=== PATIENT | male | born 1955 | race Two or more races ===

== ENCOUNTER 2021-11-28 19:51 | Emergency (ER) | payer SELFPAY ==
[~2021-11-28] VITALS: Ht 172.7 cm; Wt 99.8 kg
[2021-11-28 21:34] LABS: Basophils # (auto) 0 10 ^3/uL (0-0.2); Basophils % (auto) 0.4 % (0.0-2.0); Eosinophils # (auto) 0.1 10 ^3/uL (0-0.8); Hematocrit 47.5 % (41.0-53.0); Lymphocytes % (auto) 41.7 % (10.0-50.0); Mean Corpuscular Hgb Conc. 33.7 g/dL (32.0-36.0); Monocytes # (auto) 0.7 10 ^3/uL (0-1.3); Monocytes % (auto) 9.4 % (0.0-12.0); Neutrophils # (auto) 3.4 10 ^3/uL (1.6-8.6); Neutrophils % (auto) 46.5 % (37.0-80.0); Nucleated Red Blood Cells % 0.1 %; Red Blood Cells 5.52 10^6/uL (4.5-5.90); Red Cell Distribution Width 13.5 % (11.8-14.3); White Blood Cell 7.3 10^3/uL (4.4-10.8)
[2021-11-28 21:52] LABS: Albumin 3.8 g/dL (3.4-5.0); Potassium 4.2 mmol/L (3.5-5.1)
[2021-11-28 21:55] LABS: Bilirubin, Total 0.5 mg/dL (0.2-1.0); Total Protein 8.7 g/dL (6.4-8.2)
[2021-11-28 22:15] VITALS: BP 144/87
== END 2021-11-28 22:20 | disposition home or self-care (01) ==
LOC: ER 19:51
DX: G47.30 Sleep apnea, unspecified (principal)
CPT/HCPCS: 36415; 71045; 80053; 83880; 84484; 85025; 93005